=== PATIENT | female | born 1990 | race Caucasian/White ===

== ENCOUNTER → 2020-11-17 13:27 | Outpatient (CLI) | payer BC, SELFPAY ==
[2020-11-10 14:11] VITALS: BMI 39.4
--- NOTE | 2020-11-17 13:35 | US_ITS ---
STUDY: ULTRASOUND OF THE FEMALE PELVIS - COMPLETE REASON FOR EXAM: Female, 29 years old. Irregular menses LMP: 11/08/2020. TECHNIQUE: Transabdominal and Transvaginal TECHNICAL QUALITY: Adequate. COMPARISON: None. FINDINGS: The uterus is anteverted and is in a midline position. The uterus measures 9.1 cm x 6.2 cm x 3.9 cm. There is a Nabothian cyst of the cervix. The endometrium is thickened and measures 12.5 mm in thickness, and is heterogeneous (striated). There is no demonstrated endometrial mass. There are 2 subcentimeter fibroid seen in the body of the uterus. I.U.D. - The patient does not have an I.U.D. The right ovary is visualized. The right ovary measures 3.1 cm x 3 cm x 2.2 cm. There is no right ovarian cyst or ovarian mass. There is no visualized right adnexal mass or complex lesion. There is normal arterial and normal venous vascularity. The left ovary is visualized. The left ovary measures 2.5 cm x 2.6 x 2.3 cm. There is no left ovarian cyst or ovarian mass. There is no visualized left adnexal mass or complex lesion. There is normal arterial and normal venous vascularity. There is no fluid in the cul-de-sac. The pre void volume of the bladder was 768 ml. US/Transvaginal Non- IMPRESSION: There are 2 subcentimeter uterine fibroids. Thickened endometrium measuring 12.5 mm. Electronically Signed: Brody Novoa MD at 15:02 EDT , Service support ,
--- NOTE | 2020-11-17 13:35 | US_ITS ---
STUDY: ULTRASOUND OF THE FEMALE PELVIS - COMPLETE REASON FOR EXAM: Female, 29 years old. Irregular menses LMP: 11/08/2020. TECHNIQUE: Transabdominal and Transvaginal TECHNICAL QUALITY: Adequate. COMPARISON: None. FINDINGS: The uterus is anteverted and is in a midline position. The uterus measures 9.1 cm x 6.2 cm x 3.9 cm. There is a Nabothian cyst of the cervix. The endometrium is thickened and measures 12.5 mm in thickness, and is heterogeneous (striated). There is no demonstrated endometrial mass. There are 2 subcentimeter fibroid seen in the body of the uterus. I.U.D. - The patient does not have an I.U.D. The right ovary is visualized. The right ovary measures 3.1 cm x 3 cm x 2.2 cm. There is no right ovarian cyst or ovarian mass. There is no visualized right adnexal mass or complex lesion. There is normal arterial and normal venous vascularity. The left ovary is visualized. The left ovary measures 2.5 cm x 2.6 x 2.3 cm. There is no left ovarian cyst or ovarian mass. There is no visualized left adnexal mass or complex lesion. There is normal arterial and normal venous vascularity. There is no fluid in the cul-de-sac. The pre void volume of the bladder was 768 ml. US/Pelvic (Non ) IMPRESSION: There are 2 subcentimeter uterine fibroids. Thickened endometrium measuring 12.5 mm. Electronically Signed: Brody Novoa MD at 15:02 EDT , Service support ,
== END ==
PROVIDERS: Referring Provider Obstetrics & Gynecology; Visit Provider Obstetrics & Gynecology
DX: N92.6 Irregular menstruation, unspecified (principal)
CPT/HCPCS: 76830; 76856

== ENCOUNTER → 2020-11-25 09:23 | Outpatient (CLI) | payer BC, SELFPAY ==
[2020-11-10 14:11] VITALS: BMI 39.4
[2020-11-25 10:16] LABS: Prolactin 14.5 ng/mL
[2020-11-30 20:13] LABS: Testosterone, % Free 4.04 % (0.50-2.80); Testosterone, Free 1.45 ng/dL (0.10-0.85); Testosterone, Total 36 ng/dL (13-71)
[2020-12-01 13:29] LABS: DHEA Sulfate 85.8 ug/dL (84.8-378.0)
[2020-12-07 15:42] LABS: 17-Hydroxyprogesterone 53 ng/dL (.)
== END ==
PROVIDERS: Referring Provider Obstetrics & Gynecology; Visit Provider Obstetrics & Gynecology
DX: N92.6 Irregular menstruation, unspecified (principal)
CPT/HCPCS: 36415; 82627; 83498; 84146; 84402; 84403; 84443; 82626